=== PATIENT | female | born 1985 | race Caucasian/White ===

== ENCOUNTER 2017-09-13 12:59 | Emergency (ER) | payer SELFPAY ==
[~2017-09-13] VITALS: Ht 154.9 cm; Wt 56.7 kg
[2017-09-13 13:58] VITALS: BP 108/70
--- NOTE | 2017-09-13 14:03 | NUR ---
Patient ambulated to bed 11.
--- NOTE | 2017-09-13 14:04 | NUR ---
PT PRESENTS TO ER W/C/O SORE THROAT X1 MONTH. PT DENIES ANY MEDICAL HX.DENIES N/V/D; SKIN IS PINK/WARM/DRY; AAOX4 WITH EVEN AND STEADY GAIT; LUNGS CLEAR BL; HR EVEN AND REGULAR; PT DENIES ANY FEVER, CP, SOB, OR COUGH AT THIS TIME; PATIENT STATES PAIN OF 7/10 AT THIS TIME; PATIENT POSITIONED FOR COMFORT; HOB ELEVATED; BEDRAILS UP X2; BED DOWN. ER MD MADE AWARE OF PT STATUS.
--- NOTE | 2017-09-13 14:15 | NUR ---
Patient being evaluated by DR VELAZQUEZ at bedside.
[2017-09-13 14:48] VITALS: BP 106/62
--- NOTE | 2017-09-13 14:49 | NUR ---
Patient discharged with v/s stable. Written and verbal after care instructions given and explained. Patient alert, oriented and verbalized understanding of instructions. Ambulatory with steady gait. All questions addressed prior to discharge. ID band removed. Patient advised to follow up with PMD. Rx of CLINDAMYCIN,IBUPROFEN& PREDNISONE given. Patient educated on indication of medication including possible reaction and side effects. Opportunity to ask questions provided and answered.
== END 2017-09-13 14:49 | disposition home or self-care (01) ==
LOC: MED 12:59
DX: J02.9 Acute pharyngitis, unspecified (principal); M79.7 Fibromyalgia; Z88.8 Allergy status to other drugs, medicaments and biological substances; Z88.5 Allergy status to narcotic agent
CPT/HCPCS: 99283

== ENCOUNTER 2020-10-01 09:57 | Emergency (ER) | payer MEDICAID ==
[~2020-10-01] VITALS: Ht 157.5 cm; Wt 52.6 kg
[2020-10-01 10:30] VITALS: BP 105/59
[2020-10-01] MEDS: IBUPROFEN 400 MG TAB PO ONE (13:00)
--- NOTE | 2020-10-01 13:02 | NUR ---
35 yo female who complains of right flank and right upper quadrant abdominal pain slow onset for about 5 days. She also been constipated. Denies fever, cough, sob. med hx: gallbladder polyps
--- NOTE | 2020-10-01 13:05 | NUR ---
lab at chair a
--- NOTE | 2020-10-01 13:05 | NUR ---
pt unable to give ua at this time. pt given cup
[2020-10-01 13:20] LABS: BASOPHILS # (AUTO) 0.1 K/uL (0.00-0.22); BASOPHILS % (AUTO) 3.2 % (0.0-2.0); EOSINOPHILS % (AUTO) 0.8 % (0.0-4.0); HEMATOCRIT 32.9 % (36-48); HEMOGLOBIN 10.4 g/dL (12.0-16.0); LYMPHOCYTES # (AUTO) 0.9 K/uL (2.5-16.5); LYMPHOCYTES % (AUTO) 28.5 % (20.5-51.1); MEAN CORPUSCULAR HEMOGLOBIN 22 pg (27-31); MEAN CORPUSCULAR HGB CONC 32 g/dL (33-37); MEAN CORPUSCULAR VOLUME 69.4 fL (80-94); MONOCYTES # (AUTO) 0.3 K/uL (0.8-1.0); MONOCYTES % (AUTO) 10.3 % (1.7-9.3); NEUTROPHILS # (AUTO) 1.8 K/uL (1.8-7.7); NEUTROPHILS % (AUTO) 57.2 % (42.2-75.2); PLATELET COUNT (AUTO) 269 K/uL (140-450); RED BLOOD CELL COUNT(AUTO) 4.73 MIL/uL (4.20-5.40); RED CELL DISTRIBUTION WIDTH 18.5 % (11.6-13.7); WHITE BLOOD COUNT (AUTO) 3.2 K/uL (4.8-10.8)
[2020-10-01 13:44] LABS: ALBUMIN 4.2 g/dL (3.4-5.0); ANION GAP 14.6 (8-16); CARBON DIOXIDE 25.1 mmol/L (21-32); CREATININE 0.6 mg/dL (0.6-1.3); POTASSIUM 3.7 mmol/L (3.5-5.1); TOTAL BILIRUBIN 0.4 mg/dL (0.0-1.0)
[2020-10-01 14:03] LABS: APPEARANCE,URINE CLEAR (CLEAR); BILIRUBIN,URINE NEGATIVE (NEGATIVE); BLOOD, URINE NEGATIVE (NEGATIVE); COLOR,URINE YELLOW (YELLOW); LEUKOCYTE ESTERASE ,URINE NEGATIVE (NEGATIVE); NITRITE, URINE NEGATIVE (NEGATIVE); UGLUCOSE NEGATIVE (NEGATIVE)
--- NOTE | 2020-10-01 14:49 | NUR ---
Cj croft in EDM - 10/01/20 at 1628 by [email or web address] PATIENT ELOPED FROM FACILITY. DISCHARGE INSTRUCTIONS NOT GIVEN TO PATIENT. DR. FLORES NOTIFIED.
[2020-10-01 16:25] VITALS: BP 110/65
--- NOTE | 2020-10-01 16:25 | NUR ---
Patient discharged with v/s stable. Written and verbal after care instructions given and explained. Patient alert, oriented and verbalized understanding of instructions. Ambulatory with steady gait. All questions addressed prior to discharge. ID band removed. Patient advised to follow up with PMD. Rx of MIRALAX,NAPROSYN given. Patient educated on indication of medication including possible reaction and side effects. Opportunity to ask questions provided and answered.
== END 2020-10-01 16:25 | disposition home or self-care (01) ==
LOC: MED 09:57
DX: K59.00 Constipation, unspecified (principal); R63.0 Anorexia; Z98.890 Other specified postprocedural states; Z88.5 Allergy status to narcotic agent; Z88.6 Allergy status to analgesic agent; Z88.8 Allergy status to other drugs, medicaments and biological substances
CPT/HCPCS: 36415; 76705; 80053; 81003; 81025; 83690; 85025; 99284

== ENCOUNTER 2020-12-07 14:55 | Emergency (ER) | payer MEDICAID ==
[~2020-12-07] VITALS: Ht 154.9 cm; Wt 53.5 kg
[2020-12-07 15:08] VITALS: BP 96/70
[2020-12-07] MEDS ORDERED: HYDR25CA1 PO (16:16)
--- NOTE | 2020-12-07 16:20 | NUR ---
35 YEAR OLD FEMALE COMPLAINS OF CHEST PAIN X 1 WEEK. PAIN 7/10, INTERMITTENT, DULL, LOCAL. PATIENT DENIES VOMITING/DIARRHEA, VERBALIZED NAUSEA. PATIENT STATES SWEATING, DIZZINESS, GENERALIZED WEAKNESS. BP 109/71. PATIENT DENIES COUGH. AO4, BREATHING EVEN AND UNLABORED, SKIN WARM AND DRY. BED IN LOWEST POSITION, LOCKED, X1 SIDERAIL UP. PMH - FIBROMYALGIA NKA
[2020-12-07 16:28] VITALS: BP 109/71
--- NOTE | 2020-12-07 16:29 | NUR ---
Patient discharged with v/s stable. Written and verbal after care instructions ABOUT CHEST WALL PAIN given and explained IN FRISIAN. Patient alert, oriented and verbalized understanding of instructions. Ambulatory with steady gait. All questions addressed prior to discharge. ID band removed. Patient advised to follow up with PMD. Rx of VISTARIL given. Patient educated on indication of medication including possible reaction and side effects. Opportunity to ask questions provided and answered.
== END 2020-12-07 16:29 | disposition home or self-care (01) ==
LOC: MED 14:55
DX: R07.9 Chest pain, unspecified (principal); F41.9 Anxiety disorder, unspecified; Z88.5 Allergy status to narcotic agent; Z88.6 Allergy status to analgesic agent; Z79.899 Other long term (current) drug therapy
CPT/HCPCS: 81002; 81025; 93005; 99283

== ENCOUNTER 2021-04-12 10:05 | Emergency (ER) | payer MEDICAID ==
[~2021-04-12] VITALS: Ht 154.9 cm; Wt 57.2 kg
[~2021-04-12 10:05] MED LIST: DOXY100C9 PO; HYDR25CA1 PO; IBUP-2213 PO; MICO45CR20 VG; NAPR-54 PO; VALA1TAB42 PO
[2021-04-12 10:09] VITALS: BP 89/58
[2021-04-12] MEDS ORDERED: ONDANSETRON 4 MG/2 ML VIAL IVP ONE (12:20)
[2021-04-12] MEDS ORDERED: ONDANSETRON 4 MG/2 ML VIAL ONE (12:20)
[2021-04-12] MEDS ORDERED: KETOROLAC 15 MG/ML VIAL IVP ONE (12:20)
[2021-04-12] MEDS ORDERED: KETOROLAC 15 MG/ML VIAL ONE (12:20)
[2021-04-12 12:46] LABS: BASOPHILS # (AUTO) 0.2 K/uL (0.00-0.22); BASOPHILS % (AUTO) 4.5 % (0.0-2.0); EOSINOPHILS # (AUTO) 0.1 K/uL (0-0.4); EOSINOPHILS % (AUTO) 1.6 % (0.0-4.0); HEMATOCRIT 29.4 % (36-48); HEMOGLOBIN 9.2 g/dL (12.0-16.0); LYMPHOCYTES # (AUTO) 1.3 K/uL (2.5-16.5); LYMPHOCYTES % (AUTO) 37.4 % (20.5-51.1); MEAN CORPUSCULAR HEMOGLOBIN 21 pg (27-31); MEAN CORPUSCULAR HGB CONC 31 g/dL (33-37); MONOCYTES # (AUTO) 0.4 K/uL (0.8-1.0); MONOCYTES % (AUTO) 11.5 % (1.7-9.3); NEUTROPHILS # (AUTO) 1.6 K/uL (1.8-7.7); PLATELET COUNT (AUTO) 378 K/uL (140-450); RED BLOOD CELL COUNT(AUTO) 4.46 MIL/uL (4.20-5.40); RED CELL DISTRIBUTION WIDTH 17.8 % (11.6-13.7); WHITE BLOOD COUNT (AUTO) 3.5 K/uL (4.8-10.8)
[2021-04-12 13:06] LABS: ALBUMIN 4.4 g/dL (3.4-5.0); ANION GAP 10.3 (8-16); CARBON DIOXIDE 28.3 mmol/L (21-32); CREATININE 0.6 mg/dL (0.6-1.3); POTASSIUM 3.6 mmol/L (3.5-5.1); TOTAL BILIRUBIN 0.3 mg/dL (0.0-1.0)
[2021-04-12 13:28] LABS: APPEARANCE,URINE CLEAR (CLEAR); BILIRUBIN,URINE NEGATIVE (NEGATIVE); BLOOD, URINE TRACE-I (NEGATIVE); COLOR,URINE YELLOW (YELLOW); LEUKOCYTE ESTERASE ,URINE NEGATIVE (NEGATIVE); NITRITE, URINE NEGATIVE (NEGATIVE); UGLUCOSE NEGATIVE (NEGATIVE)
[2021-04-12] MEDS ORDERED: BEN10 PO (13:40)
[2021-04-12] MEDS ORDERED: ONDA4TAB PO (13:40)
[2021-04-12] MEDS ORDERED: FERR325E14 PO (13:40)
[2021-04-12] MEDS ORDERED: IBUP-2213 PO (13:40)
[2021-04-12] MEDS ORDERED: DOCU-299 PO (13:41)
[2021-04-12 13:46] LABS: RBC,URINE 0-5 /HPF (0-5); WBC,URINE 0-5 /HPF (0-5)
[2021-04-12 13:58] VITALS: BP 89/58
== END 2021-04-12 12:18 | disposition home or self-care (01) ==
LOC: MED 10:05 → MERGE 10:05 → MED 12:18
DX: R10.13 Epigastric pain (principal); Z88.5 Allergy status to narcotic agent; Z88.6 Allergy status to analgesic agent; Z88.8 Allergy status to other drugs, medicaments and biological substances; Z79.899 Other long term (current) drug therapy
CPT/HCPCS: 36415; 76705; 80053; 81001; 81025; 83690; 85025; 96374; 96375; 99284; J1885; J2405

== ENCOUNTER 2021-08-08 19:01 | Emergency (ER) | payer MEDICAID, OTHER ==
[~2021-08-08] VITALS: Ht 154.9 cm; Wt 53.2 kg
[~2021-08-08 19:01] MED LIST changes: +BEN10 PO; +DOCU-299 PO; +DOXY-690 PO; -DOXY100C9 PO; +FERR325E14 PO; +ONDA4TAB PO
[2021-08-08 21:03] VITALS: BP 108/59
--- NOTE | 2021-08-08 21:19 | NUR ---
PT MOVED TO ER BED 09 VIA WHEELCHAIR
[2021-08-08] MEDS ORDERED: traMADol 50 MG TAB PO ONE (21:40)
[2021-08-08] MEDS ORDERED: NACL 0.9% 1,000 ML IV SCH (21:40)
--- NOTE | 2021-08-08 21:50 | NUR ---
36 Y/O FEMALE C/O PAIN AT INCISION SITES. PT MAINLY C/O 07/21 RUQ PAIN RADIATING TO R BREAST/BACK S/P CHOLECTOMY ON THURSDAY. PAIN BEGAN 08/07. +N. DENIES VOMITING AND DIARRHEA. BURNING WITH URINATION, URGENCY AND FREQUENCY. PT REPORTS TAKING TRAMADOL FOR PAIN WITH RELIEF. NO SIGNS OF INFECTION AT INCISION SITE. DENIES DISCHARGE. PT REPORTS CHILLS. PT IS WEARING BINDER TO HELP WITH PAIN. PT A/O X4 WITH EVEN AND UNLABORED RESPIRATIONS HX:FIBROMYALGIA ALLERGIES: MORPHINE, VICODINE, AND TAMIFLU
[2021-08-08 21:59] LABS: BASOPHILS # (AUTO) 0.1 K/uL (0.00-0.22); EOSINOPHILS # (AUTO) 0.1 K/uL (0-0.4); EOSINOPHILS % (AUTO) 1.3 % (0.0-4.0); HEMATOCRIT 29.8 % (36-48); HEMOGLOBIN 9.4 g/dL (12.0-16.0); LYMPHOCYTES # (AUTO) 1.3 K/uL (2.5-16.5); LYMPHOCYTES % (AUTO) 18.6 % (20.5-51.1); MEAN CORPUSCULAR HEMOGLOBIN 22 pg (27-31); MEAN CORPUSCULAR HGB CONC 31 g/dL (33-37); MEAN CORPUSCULAR VOLUME 69.4 fL (80-94); MONOCYTES # (AUTO) 0.6 K/uL (0.8-1.0); MONOCYTES % (AUTO) 8.7 % (1.7-9.3); NEUTROPHILS # (AUTO) 4.9 K/uL (1.8-7.7); NEUTROPHILS % (AUTO) 70.4 % (42.2-75.2); PLATELET COUNT (AUTO) 260 K/uL (140-450); RED CELL DISTRIBUTION WIDTH 17.6 % (11.6-13.7)
[2021-08-08 22:14] LABS: ALBUMIN 3.7 g/dL (3.4-5.0); ANION GAP 10.6 (8-16); CARBON DIOXIDE 27.8 mmol/L (21-32); CREATININE 0.7 mg/dL (0.6-1.3); POTASSIUM 3.4 mmol/L (3.5-5.1); TOTAL BILIRUBIN 0.2 mg/dL (0.0-1.0)
--- NOTE | 2021-08-08 22:30 | NUR ---
PT UNABLE TO PROVIDE URINE SAMPLE AT THIS TIME, WILL ATTEMPT AT A LATER TIME
--- NOTE | 2021-08-08 22:54 | NUR ---
PT TAKEN TO CT VIA W/C
--- NOTE | 2021-08-08 23:10 | NUR ---
PT BACK FROM CT, PT IN BATHROOM FOR URINE SAMPLE
--- NOTE | 2021-08-08 23:11 | NUR ---
Received report from Lili GRIMM for continuity of care
--- NOTE | 2021-08-08 23:11 | NUR ---
REPORT GIVEN TO ROCIO RN, TRANSFER OF CARE AT THIS TIME
[2021-08-08 23:35] LABS: APPEARANCE,URINE CLEAR (CLEAR); BILIRUBIN,URINE NEGATIVE (NEGATIVE); BLOOD, URINE NEGATIVE (NEGATIVE); COLOR,URINE YELLOW (YELLOW); LEUKOCYTE ESTERASE ,URINE 1+ (NEGATIVE); NITRITE, URINE NEGATIVE (NEGATIVE); PH,URINE 5.5 (5.0-9.0); UGLUCOSE NEGATIVE (NEGATIVE)
[2021-08-08 23:48] LABS: RBC,URINE 0-5 /HPF (0-5)
[2021-08-09] MEDS ORDERED: TRAM50TA3 PO (00:12)
[2021-08-09] MEDS ORDERED: CEPH-588 PO (00:12)
[2021-08-09] MEDS ORDERED: cefTRIAXone 1,000 MG VIAL ONE (00:31)
[2021-08-09 01:42] VITALS: BP 115/70
--- NOTE | 2021-08-09 01:42 | NUR ---
Patient discharged with v/s stable. Written and verbal after care instructions given and explained. Patient alert, oriented and verbalized understanding of instructions. Ambulatory with steady gait. All questions addressed prior to discharge. ID band removed. Patient advised to follow up with PMD. Rx of KEFLEX AND TRAMADOL given. Patient educated on indication of medication including possible reaction and side effects. Opportunity to ask questions provided and answered.
== END 2021-08-09 01:42 | disposition home or self-care (01) ==
LOC: MED 19:01
DX: R10.13 Epigastric pain (principal); G89.18 Other acute postprocedural pain; N39.0 Urinary tract infection, site not specified; Z88.6 Allergy status to analgesic agent; Z88.5 Allergy status to narcotic agent; Z88.8 Allergy status to other drugs, medicaments and biological substances
CPT/HCPCS: 36415; 74176; 80053; 81001; 83690; 84703; 85025; 87086; 96361; 96365; 99284; J0696; J7030

== ENCOUNTER 2021-10-14 11:56 | Emergency (ER) | payer OTHER ==
[~2021-10-14] VITALS: Ht 154.9 cm; Wt 53.1 kg
[~2021-10-14 11:56] MED LIST changes: +CEPH-588 PO; +TRAM50TA3 PO
[2021-10-14 12:13] VITALS: BP 107/63
[2021-10-14] MEDS ORDERED: IMO2 PO (15:26)
[2021-10-14] MEDS ORDERED: ONDA-188 PO (15:28)
[2021-10-14 15:38] LABS: BASOPHILS # (AUTO) 0.1 K/uL (0.00-0.22); BASOPHILS % (AUTO) 1.3 % (0.0-2.0); EOSINOPHILS # (AUTO) 0.1 K/uL (0-0.4); EOSINOPHILS % (AUTO) 1.1 % (0.0-4.0); HEMATOCRIT 30.3 % (36-48); HEMOGLOBIN 9.7 g/dL (12.0-16.0); LYMPHOCYTES # (AUTO) 1.4 K/uL (2.5-16.5); LYMPHOCYTES % (AUTO) 26.7 % (20.5-51.1); MEAN CORPUSCULAR HEMOGLOBIN 22 pg (27-31); MEAN CORPUSCULAR HGB CONC 32 g/dL (33-37); MEAN CORPUSCULAR VOLUME 68.7 fL (80-94); MONOCYTES # (AUTO) 0.4 K/uL (0.8-1.0); MONOCYTES % (AUTO) 8.1 % (1.7-9.3); NEUTROPHILS # (AUTO) 3.3 K/uL (1.8-7.7); NEUTROPHILS % (AUTO) 62.8 % (42.2-75.2); PLATELET COUNT (AUTO) 316 K/uL (140-450); RED BLOOD CELL COUNT(AUTO) 4.41 MIL/uL (4.20-5.40); WHITE BLOOD COUNT (AUTO) 5.2 K/uL (4.8-10.8)
[2021-10-14 15:59] LABS: ALBUMIN 3.8 g/dL (3.4-5.0); ANION GAP 9.4 (8-16); CARBON DIOXIDE 28.2 mmol/L (21-32); CREATININE 0.5 mg/dL (0.6-1.3); POTASSIUM 3.6 mmol/L (3.5-5.1); TOTAL BILIRUBIN 0.2 mg/dL (0.0-1.0)
--- NOTE | 2021-10-14 16:15 | NUR ---
Patient discharged with v/s stable. Written and verbal after care instructions given and explained. Patient verbalized understanding. Ambulatory with steady gait. All questions addressed prior to discharge. Advised to follow up with PMD.
[2021-10-14 16:16] VITALS: BP 107/63
--- NOTE | 2021-10-14 16:16 | NUR ---
rx: loperamide hydrochloride (sent)
== END 2021-10-14 16:15 | disposition home or self-care (01) ==
LOC: MED 11:56
DX: R19.7 Diarrhea, unspecified (principal); R10.9 Unspecified abdominal pain; D64.9 Anemia, unspecified; Z90.49 Acquired absence of other specified parts of digestive tract; Z79.899 Other long term (current) drug therapy; Z88.5 Allergy status to narcotic agent; Z88.8 Allergy status to other drugs, medicaments and biological substances; Z88.6 Allergy status to analgesic agent
CPT/HCPCS: 36415; 80053; 83690; 84703; 85025; 99283

== ENCOUNTER 2021-10-27 12:57 | Emergency (ER) | payer OTHER ==
[~2021-10-27] VITALS: Ht 154.9 cm; Wt 54.4 kg
[~2021-10-27 12:57] MED LIST changes: +IMO2 PO; +ONDA-188 PO
[2021-10-27 13:18] VITALS: BP 118/73
--- NOTE | 2021-10-27 13:20 | NUR ---
PA WILSON EVALUATING PT AT THIS TIME IN THE TENT
[2021-10-27] MEDS ORDERED: ONDANSETRON 4 MG ODT ONE (13:28)
[2021-10-27] MEDS: ONDANSETRON 4 MG ODT PO ONE ×2 (14:07→14:10)
[2021-10-27] MEDS ORDERED: IMO2 PO ×2 (14:21→15:11)
[2021-10-27] MEDS ORDERED: IBUP-2213 PO (14:21)
[2021-10-27] MEDS ORDERED: ONDA-188 PO ×2 (14:21→15:11)
[2021-10-27] MEDS ORDERED: NAPR-54 PO ×2 (14:45→15:11)
--- NOTE | 2021-10-27 15:02 | NUR ---
Patient discharged with v/s stable. Written and verbal after care instructions ABOUT VIRAL ILLNESS given and explained. Patient alert, oriented and verbalized understanding of instructions. Ambulatory with steady gait. All questions addressed prior to discharge. ID band removed. Patient advised to follow up with PMD. Rx of MOTRIN, NAPROXEN, ZOFRAN, AND LOPERAMIDE given. Patient educated on indication of medication including possible reaction and side effects. Opportunity to ask questions provided and answered.
== END 2021-10-27 18:02 | disposition home or self-care (01) ==
LOC: MED 12:57
DX: B34.9 Viral infection, unspecified (principal); Z20.822 Contact with and (suspected) exposure to COVID-19; Z79.899 Other long term (current) drug therapy; Z88.5 Allergy status to narcotic agent; Z88.6 Allergy status to analgesic agent; Z88.8 Allergy status to other drugs, medicaments and biological substances
CPT/HCPCS: 71045; 81002; 81025; 99284; Q0162; U0003

== ENCOUNTER 2021-10-30 11:20 | Emergency (ER) | payer OTHER ==
[~2021-10-30] VITALS: Ht 162.6 cm; Wt 53.1 kg
[2021-10-30 11:33] VITALS: BP 103/59
[2021-10-30] MEDS ORDERED: BEN10 PO (14:07)
--- NOTE | 2021-10-30 14:30 | NUR ---
Patient discharged with v/s stable. Written and verbal after care instructions ABOUT IBS given and explained. Patient alert, oriented and verbalized understanding of instructions. Ambulatory with steady gait. All questions addressed prior to discharge. ID band removed. Patient advised to follow up with PMD. Rx of BENTYL given. Patient educated on indication of medication including possible reaction and side effects. Opportunity to ask questions provided and answered.
--- NOTE | 2021-10-30 14:30 | NUR ---
NO NURSING INTERVENTIONS PROVIDED
[2021-10-30 19:19] LABS: APPEARANCE,URINE CLEAR (CLEAR); BILIRUBIN,URINE NEGATIVE (NEGATIVE); BLOOD, URINE 2+ (NEGATIVE); COLOR,URINE YELLOW (YELLOW); LEUKOCYTE ESTERASE ,URINE NEGATIVE (NEGATIVE); NITRITE, URINE NEGATIVE (NEGATIVE); UGLUCOSE NEGATIVE (NEGATIVE)
[2021-10-30 19:33] LABS: RBC,URINE 0-5 /HPF (0-5); WBC,URINE 0-5 /HPF (0-5)
== END 2021-10-30 14:30 | disposition home or self-care (01) ==
LOC: MED 11:21
DX: R19.7 Diarrhea, unspecified (principal); K59.00 Constipation, unspecified; Z79.899 Other long term (current) drug therapy; Z88.5 Allergy status to narcotic agent; Z88.8 Allergy status to other drugs, medicaments and biological substances; Z88.6 Allergy status to analgesic agent; Z98.890 Other specified postprocedural states; Z90.49 Acquired absence of other specified parts of digestive tract
CPT/HCPCS: 81001; 81025; 99283

== ENCOUNTER 2021-11-15 12:28 | Emergency (ER) | payer OTHER ==
[~2021-11-15] VITALS: Ht 154.9 cm; Wt 53.1 kg
[2021-11-15 12:43] VITALS: BP 111/73
--- NOTE | 2021-11-15 12:47 | NUR ---
pt amb to er bed [address] cortes at bedside
--- NOTE | 2021-11-15 12:49 | NUR ---
36/F BIB SELF WITH C/O JOINT PAIN AND CHEST PAIN X3 DAYS, STATES SHE HAS HX OF FIBROMYALGIA AND BELIEVES SHE IS HAVING A FLARE UP, STATES SHE TOOK ASPIRIN WITH NO RELIEF. MEDHX: FIBROMYLAGIA ALLERGIES: MORPHINE, TAMIFLU, HYDROCODONE
[2021-11-15 12:54] VITALS: BP 111/73
[2021-11-15] MEDS ORDERED: KETOROLAC 30 MG/ML VIAL IM ONE (13:00)
[2021-11-15] MEDS ORDERED: NAPR-1704 PO (13:34)
== END 2021-11-15 14:26 | disposition home or self-care (01) ==
LOC: MED 12:28
DX: G89.29 Other chronic pain (principal); M25.561 Pain in right knee; M25.562 Pain in left knee; R42 Dizziness and giddiness; M54.9 Dorsalgia, unspecified; R06.2 Wheezing; R07.9 Chest pain, unspecified; Z88.8 Allergy status to other drugs, medicaments and biological substances; Z88.5 Allergy status to narcotic agent; Z88.6 Allergy status to analgesic agent
CPT/HCPCS: 71045; 96372; 99283; J1885; Q0092

== ENCOUNTER 2021-12-27 16:21 | Emergency (ER) | payer OTHER ==
[~2021-12-27] VITALS: Ht 154.9 cm; Wt 54.4 kg
[~2021-12-27 16:21] MED LIST changes: +NAPR-1704 PO
[2021-12-27 16:35] VITALS: BP 116/59
--- NOTE | 2021-12-27 16:55 | NUR ---
URINE COLLECTED AND WALKED TO LAB. URINE HANDED TO [employer] ASHLEY
--- NOTE | 2021-12-27 17:06 | NUR ---
36 YO F C/O FLANK PAIN AND DYSURIA X 2 WEEKS. (+)N/V. DENIES HEMATURIA. TOOK IBUPROFEN LAST NIGHT. LMP- 12/19/21. PER PATIENT THE LOWER BACK PAIN IS DULL LIKE PAIN AND 8/10. DENIES DIARRHEA; SKIN IS PINK/WARM/DRY; AAOX4 WITH EVEN AND STEADY GAIT; LUNGS CLEAR BL; HR EVEN AND REGULAR; PT DENIES ANY FEVER, CP, SOB, OR COUGH AT THIS TIME; PATIENT STATES PAIN OF 0/10 AT THIS TIME; VSS; PATIENT POSITIONED FOR COMFORT; HOB ELEVATED; BEDRAILS UP X2; BED DOWN. ER MD MADE AWARE OF PT STATUS. PMH: FIBROMYALGIA MEDS: GABAPENTIN
[2021-12-27 17:07] LABS: APPEARANCE,URINE CLEAR (CLEAR); BILIRUBIN,URINE NEGATIVE (NEGATIVE); BLOOD, URINE TRACE-L (NEGATIVE); COLOR,URINE YELLOW (YELLOW); LEUKOCYTE ESTERASE ,URINE NEGATIVE (NEGATIVE); NITRITE, URINE NEGATIVE (NEGATIVE); UGLUCOSE NEGATIVE (NEGATIVE)
--- NOTE | 2021-12-27 17:34 | NUR ---
BLOODWORK COLLECTED AND HANDED TO [employer]ENT[employer] ASHLEY SIDRA
[2021-12-27 17:51] LABS: BASOPHILS # (AUTO) 0.1 K/uL (0.00-0.22); BASOPHILS % (AUTO) 2.7 % (0.0-2.0); EOSINOPHILS # (AUTO) 0.1 K/uL (0-0.4); HEMATOCRIT 27.1 % (36-48); HEMOGLOBIN 8.6 g/dL (12.0-16.0); LYMPHOCYTES # (AUTO) 1.8 K/uL (2.5-16.5); LYMPHOCYTES % (AUTO) 35.9 % (20.5-51.1); MEAN CORPUSCULAR HEMOGLOBIN 22 pg (27-31); MEAN CORPUSCULAR HGB CONC 32 g/dL (33-37); MEAN CORPUSCULAR VOLUME 69.1 fL (80-94); MONOCYTES # (AUTO) 0.6 K/uL (0.8-1.0); MONOCYTES % (AUTO) 12.4 % (1.7-9.3); NEUTROPHILS # (AUTO) 2.2 K/uL (1.8-7.7); PLATELET COUNT (AUTO) 326 K/uL (140-450); RED BLOOD CELL COUNT(AUTO) 3.93 MIL/uL (4.20-5.40); RED CELL DISTRIBUTION WIDTH 17.8 % (11.6-13.7); WHITE BLOOD COUNT (AUTO) 4.9 K/uL (4.8-10.8)
[2021-12-27 18:05] LABS: RBC,URINE 0-5 /HPF (0-5); WBC,URINE NONE SEEN /HPF (0-5)
[2021-12-27 18:09] LABS: ALBUMIN 3.3 g/dL (3.4-5.0); ANION GAP 10.3 (8-16); CARBON DIOXIDE 29.3 mmol/L (21-32); CREATININE 0.7 mg/dL (0.6-1.3); POTASSIUM 3.6 mmol/L (3.5-5.1); TOTAL BILIRUBIN 0.4 mg/dL (0.0-1.0)
--- NOTE | 2021-12-27 18:16 | NUR ---
PT RETURNED TO BED [address] [facility] [facility]
[2021-12-27] MEDS: ONDANSETRON 4 MG/2 ML VIAL IVP ONE ×2 (18:25→19:05)
[2021-12-27] MEDS: KETOROLAC 15 MG/ML VIAL IVP ONE ×2 (18:25→19:04)
[2021-12-27] MEDS: NACL 0.9% 1,000 ML IV ONE ×2 (18:25→19:04)
[2021-12-27] MEDS ORDERED: ONDA-188 PO ×2 (18:53→20:10)
[2021-12-27] MEDS ORDERED: CEPH-588 PO ×2 (18:53→20:10)
[2021-12-27] MEDS ORDERED: PYR100 PO ×2 (18:53→20:10)
[2021-12-27] MEDS: cephALEXin 500 MG CAP PO ONE (19:13)
--- NOTE | 2021-12-27 19:19 | NUR ---
Pt report given to SIRISHA RASMUSSEN. Transfer of care at this time.
[2021-12-27 20:19] VITALS: BP 97/63
--- NOTE | 2021-12-27 20:37 | NUR ---
Patient discharged with v/s stable. Written and verbal after care instructions given and explained. Patient alert, oriented and verbalized understanding of instructions. Ambulatory with steady gait. All questions addressed prior to discharge. ID band removed. Patient advised to follow up with PMD. Rx of KEFLEX, ZOFRAN, PYRIDIUM given. Patient educated on indication of medication including possible reaction and side effects. Opportunity to ask questions provided and answered.
== END 2021-12-27 20:19 | disposition home or self-care (01) ==
LOC: MED 16:21
DX: N39.0 Urinary tract infection, site not specified (principal); D64.9 Anemia, unspecified; J84.10 Pulmonary fibrosis, unspecified; N85.2 Hypertrophy of uterus; Z20.2 Contact with and (suspected) exposure to infections with a predominantly sexual mode of transmission; Z88.5 Allergy status to narcotic agent; Z88.6 Allergy status to analgesic agent; Z88.8 Allergy status to other drugs, medicaments and biological substances; Z79.899 Other long term (current) drug therapy
CPT/HCPCS: 36415; 74176; 80053; 81001; 81025; 83690; 85025; 87086; 96361; 96374; 96375; 99284; J1885; J2405; J7030

== ENCOUNTER 2021-12-31 18:12 | Emergency (ER) | payer OTHER ==
[~2021-12-31] VITALS: Ht 154.9 cm; Wt 55.8 kg
[~2021-12-31 18:12] MED LIST changes: +PYR100 PO
[2021-12-31 18:36] VITALS: BP 102/65
[2021-12-31 20:18] LABS: BASOPHILS # (AUTO) 0.1 K/uL (0.00-0.22); BASOPHILS % (AUTO) 2.3 % (0.0-2.0); EOSINOPHILS # (AUTO) 0.1 K/uL (0-0.4); EOSINOPHILS % (AUTO) 1.5 % (0.0-4.0); HEMATOCRIT 27.6 % (36-48); HEMOGLOBIN 8.9 g/dL (12.0-16.0); LYMPHOCYTES # (AUTO) 1.6 K/uL (2.5-16.5); LYMPHOCYTES % (AUTO) 25.6 % (20.5-51.1); MEAN CORPUSCULAR HEMOGLOBIN 22 pg (27-31); MEAN CORPUSCULAR HGB CONC 32 g/dL (33-37); MONOCYTES # (AUTO) 0.7 K/uL (0.8-1.0); MONOCYTES % (AUTO) 10.5 % (1.7-9.3); NEUTROPHILS # (AUTO) 3.8 K/uL (1.8-7.7); NEUTROPHILS % (AUTO) 60.1 % (42.2-75.2); PLATELET COUNT (AUTO) 348 K/uL (140-450); RED CELL DISTRIBUTION WIDTH 17.6 % (11.6-13.7); WHITE BLOOD COUNT (AUTO) 6.3 K/uL (4.8-10.8)
[2021-12-31 20:40] LABS: ALBUMIN 3.5 g/dL (3.4-5.0); ANION GAP 12.2 (8-16); CARBON DIOXIDE 28.6 mmol/L (21-32); CREATININE 0.6 mg/dL (0.6-1.3); POTASSIUM 3.8 mmol/L (3.5-5.1); TOTAL BILIRUBIN 0.7 mg/dL (0.0-1.0)
[2021-12-31] MEDS ORDERED: METR-435 PO (22:11)
--- NOTE | 2021-12-31 22:25 | NUR ---
Patient discharged with v/s stable. Written and verbal after care instructions given and explained. Patient alert, oriented and verbalized understanding of instructions. Ambulatory with steady gait. All questions addressed prior to discharge. ID band removed. Patient advised to follow up with PMD. Rx of Metronidazole given. Patient educated on indication of medication including possible reaction and side effects. Opportunity to ask questions provided and answered.
[2021-12-31 22:32] VITALS: BP 105/67
== END 2021-12-31 22:25 | disposition home or self-care (01) ==
LOC: MED 18:12
DX: N77.1 Vaginitis, vulvitis and vulvovaginitis in diseases classified elsewhere (principal); Z88.6 Allergy status to analgesic agent; Z88.5 Allergy status to narcotic agent; Z88.8 Allergy status to other drugs, medicaments and biological substances; Z79.899 Other long term (current) drug therapy
CPT/HCPCS: 36415; 71045; 80053; 81025; 83880; 84484; 85025; 87210; 93005; 99285

== ENCOUNTER 2022-01-17 14:00 | Emergency (ER) | payer OTHER ==
[~2022-01-17] VITALS: Ht 154.9 cm; Wt 53.1 kg
[~2022-01-17 14:00] MED LIST changes: +METR-435 PO
--- NOTE | 2022-01-17 14:05 | NUR ---
pt ambulated to bed 05.
[2022-01-17 14:16] VITALS: BP 103/70
--- NOTE | 2022-01-17 14:45 | NUR ---
AT PT BEDSIDE.
--- NOTE | 2022-01-17 14:48 | NUR ---
36 Y/O FEMALE BIB SELF C/O INTERMITTENT ABDOMINAL "DULL" TYPE OF PAIN AND BLOOD IN STOOL FOR APPROX. 1WK. ABDOMEN IS TENDER. PT DENIES NAUSEA, VOMITING, DIARRHEA. PT DENIES FEVER OR CHILLS, CHEST PAIN OR SOB. S/P GALL BLADDER REMOVAL APPROX. 6 MOS AGO. PT IS ALERT AND ORIENTED X4. BED IN LOWET POSITION. SIDE RAIL X1. PMH:FIBROMYALGIA, ANEMIA MEDS: GABAPENTIN, NAPROXEN ALLERGIES: VICODIN, MORPHINE, TIMAFLU
[2022-01-17] MEDS ORDERED: KETOROLAC 30 MG/ML VIAL IVP ONE (15:15)
[2022-01-17 15:38] LABS: BASOPHILS # (AUTO) 0.1 K/uL (0.00-0.22); BASOPHILS % (AUTO) 3.2 % (0.0-2.0); EOSINOPHILS # (AUTO) 0.1 K/uL (0-0.4); EOSINOPHILS % (AUTO) 1.8 % (0.0-4.0); HEMATOCRIT 28.8 % (36-48); HEMOGLOBIN 9.2 g/dL (12.0-16.0); LYMPHOCYTES # (AUTO) 1.2 K/uL (2.5-16.5); MEAN CORPUSCULAR HEMOGLOBIN 22 pg (27-31); MEAN CORPUSCULAR HGB CONC 32 g/dL (33-37); MEAN CORPUSCULAR VOLUME 68.7 fL (80-94); MONOCYTES # (AUTO) 0.5 K/uL (0.8-1.0); MONOCYTES % (AUTO) 12.7 % (1.7-9.3); NEUTROPHILS # (AUTO) 2.3 K/uL (1.8-7.7); NEUTROPHILS % (AUTO) 54.3 % (42.2-75.2); PLATELET COUNT (AUTO) 314 K/uL (140-450); RED BLOOD CELL COUNT(AUTO) 4.19 MIL/uL (4.20-5.40); RED CELL DISTRIBUTION WIDTH 18.6 % (11.6-13.7); WHITE BLOOD COUNT (AUTO) 4.2 K/uL (4.8-10.8)
[2022-01-17 15:53] LABS: APPEARANCE,URINE CLEAR (CLEAR); BILIRUBIN,URINE NEGATIVE (NEGATIVE); BLOOD, URINE 3+ (NEGATIVE); COLOR,URINE STRAW (YELLOW); LEUKOCYTE ESTERASE ,URINE NEGATIVE (NEGATIVE); NITRITE, URINE NEGATIVE (NEGATIVE); PH,URINE 6.5 (5.0-9.0); UGLUCOSE NEGATIVE (NEGATIVE)
[2022-01-17 15:54] LABS: ALBUMIN 3.6 g/dL (3.4-5.0); CARBON DIOXIDE 28.7 mmol/L (21-32); CREATININE 0.8 mg/dL (0.6-1.3); POTASSIUM 3.7 mmol/L (3.5-5.1); TOTAL BILIRUBIN 0.4 mg/dL (0.0-1.0)
[2022-01-17 16:08] LABS: RBC,URINE 50-80 /HPF (0-5); WBC,URINE NONE SEEN /HPF (0-5)
[2022-01-17 17:06] VITALS: BP 103/70
== END 2022-01-17 17:07 | disposition home or self-care (01) ==
LOC: MED 14:00
DX: R10.11 Right upper quadrant pain (principal); R19.7 Diarrhea, unspecified; R11.0 Nausea
CPT/HCPCS: 36415; 80053; 81001; 81025; 83690; 85025; 96372; 99283; J1885; 96374

== ENCOUNTER 2022-04-13 06:33 | Emergency (ER) | payer OTHER ==
[~2022-04-13] VITALS: Ht 154.9 cm; Wt 55.8 kg
[2022-04-13 06:38] VITALS: BP 94/63
--- NOTE | 2022-04-13 06:42 | NUR ---
Cj croft in [facility] - 04/13/22 at 0644 by [facility] PT TAKEN TO .
--- NOTE | 2022-04-13 06:44 | NUR ---
CONSTANCE KWAW ASSESSING IN TRIAGE.
--- NOTE | 2022-04-13 06:44 | NUR ---
TAKEN TO BED 09
[2022-04-13] MEDS ORDERED: KETOROLAC 30 MG/ML VIAL ONE (06:49)
[2022-04-13] MEDS ORDERED: KETOROLAC 30 MG/ML VIAL IVP ONE (06:50)
[2022-04-13] MEDS ORDERED: NACL 0.9% 1,000 ML IV ONE (06:50)
--- NOTE | 2022-04-13 07:04 | NUR ---
AFGHAN-SPEAKING PATIENT
--- NOTE | 2022-04-13 07:10 | NUR ---
RECEIVED REPORT FROM SIRISHA TRUJILLO. ASSUMED CARE AT THIS TIME.
[2022-04-13 07:30] LABS: BASOPHILS % (AUTO) 0.5 % (0.0-2.0); EOSINOPHILS % (AUTO) 0.3 % (0.0-4.0); HEMATOCRIT 32.2 % (36-48); HEMOGLOBIN 10.2 g/dL (12.0-16.0); LYMPHOCYTES # (AUTO) 0.6 K/uL (2.5-16.5); MEAN CORPUSCULAR HEMOGLOBIN 22 pg (27-31); MEAN CORPUSCULAR HGB CONC 32 g/dL (33-37); MEAN CORPUSCULAR VOLUME 69.8 fL (80-94); MONOCYTES # (AUTO) 0.6 K/uL (0.8-1.0); MONOCYTES % (AUTO) 6.5 % (1.7-9.3); NEUTROPHILS # (AUTO) 8.3 K/uL (1.8-7.7); PLATELET COUNT (AUTO) 293 K/uL (140-450); RED BLOOD CELL COUNT(AUTO) 4.62 MIL/uL (4.20-5.40); WHITE BLOOD COUNT (AUTO) 9.6 K/uL (4.8-10.8)
[2022-04-13 07:47] LABS: LYMPHOCYTES % (AUTO) 6.4 % (20.5-51.1); NEUTROPHILS % (AUTO) 86.3 % (42.2-75.2)
[2022-04-13 08:14] LABS: ALBUMIN 3.7 g/dL (3.4-5.0); CARBON DIOXIDE 30.3 mmol/L (21-32); CREATININE 0.6 mg/dL (0.6-1.3); POTASSIUM 3.3 mmol/L (3.5-5.1); TOTAL BILIRUBIN 0.3 mg/dL (0.0-1.0)
--- NOTE | 2022-04-13 09:19 | NUR ---
IV removed, catheter intact and site benign. Applied folded 4x4 gauze and tape to stop bleeding.
[2022-04-13 09:20] VITALS: BP 108/66
--- NOTE | 2022-04-13 09:20 | NUR ---
Patient discharged with v/s stable. Written and verbal after care instructions ABOOUT FOOD POISONING given and explained. Patient verbalized understanding. Ambulatory with steady gait. All questions addressed prior to discharge. Advised to follow up with PMD.
[2022-04-13] MEDS ORDERED: LOPE-202 PO ×2 (18:40→19:02)
[2022-04-13] MEDS ORDERED: BEN10 PO (18:40)
[2022-04-13] MEDS ORDERED: ONDA-188 PO ×2 (18:40→19:02)
[2022-04-13] MEDS ORDERED: IBUP-2213 PO ×2 (18:40→19:02)
== END 2022-04-13 09:20 | disposition home or self-care (01) ==
LOC: MED 06:33
DX: A05.9 Bacterial foodborne intoxication, unspecified (principal); R19.7 Diarrhea, unspecified; Z90.49 Acquired absence of other specified parts of digestive tract; Z98.890 Other specified postprocedural states; Z79.2 Long term (current) use of antibiotics; Z79.899 Other long term (current) drug therapy; Z79.1 Long term (current) use of non-steroidal anti-inflammatories (NSAID); Z79.891 Long term (current) use of opiate analgesic; Z88.8 Allergy status to other drugs, medicaments and biological substances; Z88.5 Allergy status to narcotic agent
CPT/HCPCS: 36415; 80053; 81002; 81025; 85025; 96361; 96374; 99283; J1885

== ENCOUNTER 2022-04-13 14:18 | Emergency (ER) | payer OTHER ==
[~2022-04-13] VITALS: Ht 154.9 cm; Wt 54.9 kg
[2022-04-13 14:37] VITALS: BP 109/64
[2022-04-13] MEDS ORDERED: IBUPROFEN 400 MG TAB ONE (15:40)
[2022-04-13] MEDS ORDERED: IBUPROFEN 400 MG TAB PO ONE (15:40)
--- NOTE | 2022-04-13 16:52 | NUR ---
CONTACTED PT NOT FOUND IN LOBBY
--- NOTE | 2022-04-13 17:00 | NUR ---
SWABS WALKED TO LAB, RECHECKED TEMP 98.5 ORAL
--- NOTE | 2022-04-13 17:15 | NUR ---
Cj croft in [facility] - 04/13/22 at 1824 by DAMIENMD PT LEFT WITHOUT DISCHARGE INSTRUCTIONS
--- NOTE | 2022-04-13 18:24 | NUR ---
PT RETURN BACK TO [facility]
--- NOTE | 2022-04-13 18:36 | NUR ---
DR LYNNE IN TRIAGE FOR PT EVAL, YARN SPINNER USED, PAULA
[2022-04-13] MEDS ORDERED: BEN10 PO (18:40)
[2022-04-13] MEDS ORDERED: IBUP-2213 PO ×2 (18:40→19:02)
[2022-04-13] MEDS ORDERED: ONDA-188 PO ×2 (18:40→19:02)
[2022-04-13] MEDS ORDERED: LOPE-202 PO ×2 (18:40→19:02)
[2022-04-13] MEDS ORDERED: ACETAMINOPHEN EXTRA STRENGTH 500 MG TAB PO ONE (18:45)
[2022-04-13 19:02] VITALS: BP 120/74
--- NOTE | 2022-04-13 19:02 | NUR ---
Patient discharged with v/s stable. Written and verbal after care instructions given and explained. Patient alert, oriented and verbalized understanding of instructions. Ambulatory with steady gait. All questions addressed prior to discharge. ID band removed. Patient advised to follow up with PMD. Rx of IBUPROFEN, BENTYL, LOPERAMIDE, ZOFRAN ODT given. Patient educated on indication of medication including possible reaction and side effects. Opportunity to ask questions provided and answered.
== END 2022-04-13 19:02 | disposition home or self-care (01) ==
LOC: MED 14:18
DX: A05.9 Bacterial foodborne intoxication, unspecified (principal); Z20.822 Contact with and (suspected) exposure to COVID-19; A08.4 Viral intestinal infection, unspecified; R50.9 Fever, unspecified; Z79.899 Other long term (current) drug therapy; Z79.1 Long term (current) use of non-steroidal anti-inflammatories (NSAID); Z79.2 Long term (current) use of antibiotics; Z88.5 Allergy status to narcotic agent; Z88.6 Allergy status to analgesic agent; Z88.8 Allergy status to other drugs, medicaments and biological substances
CPT/HCPCS: 99283

== ENCOUNTER 2022-04-17 10:00 | Emergency (ER) | payer OTHER ==
[~2022-04-17] VITALS: Ht 154.9 cm; Wt 54.0 kg
[~2022-04-17 10:00] MED LIST changes: +LOPE-202 PO
[2022-04-17 10:10] VITALS: BP 112/65
[2022-04-17 13:43] LABS: APPEARANCE,URINE CLEAR (CLEAR); BILIRUBIN,URINE NEGATIVE (NEGATIVE); BLOOD, URINE NEGATIVE (NEGATIVE); COLOR,URINE YELLOW (YELLOW); LEUKOCYTE ESTERASE ,URINE NEGATIVE (NEGATIVE); NITRITE, URINE NEGATIVE (NEGATIVE); UGLUCOSE NEGATIVE (NEGATIVE)
[2022-04-17] MEDS ORDERED: ONDANSETRON 4 MG ODT ONE (13:51)
[2022-04-17] MEDS: ONDANSETRON 4 MG ODT PO ONE (13:55)
--- NOTE | 2022-04-17 15:13 | NUR ---
PATIENT IS DISCHARGED. PATIENT IS REFUSING TO SIGN TO DC PAPERWORK.
--- NOTE | 2022-04-17 15:15 | NUR ---
DR OLIVEIRA, WHO SAW THE PATIENT LEFT. DR ADHIKARI MADE AWARE OF PATIENTS REQUEST. STATED TO FOLLOW UP WITH PCP, PT HAS BEEN DISCHARGED BY PREVIOUS MD.
--- NOTE | 2022-04-17 15:20 | NUR ---
PT REFUSING TO LEAVE. SECURITY CALLED AND ASSISTED. PT SCREAMING IN MY FACE. OTHER PATIENTS GETTING INVOLVED, GETTING AGGRESSIVE AND APPROACHING ME. BROOK BORJA CALLED FOR ASSISTANCE.
--- NOTE | 2022-04-17 16:15 | NUR ---
HOUSE BOGDAN ANDRADE NOTIFIED AND INVOLVED. PT IN FRONT LOBBY. BROOK BORJA HERE, SENT TO FRONT LOBBY
== END 2022-04-17 15:13 | disposition home or self-care (01) ==
LOC: MED 10:00
DX: K52.9 Noninfective gastroenteritis and colitis, unspecified (principal)
CPT/HCPCS: 81003; 81025; 99283; Q0162

== ENCOUNTER 2022-05-21 09:58 | Emergency (ER) | payer OTHER ==
[~2022-05-21] VITALS: Ht 153.7 cm; Wt 55.4 kg
[2022-05-21 10:09] VITALS: BP 111/78
[2022-05-21] MEDS ORDERED: NACL 0.9% 1,000 ML IV ONE (11:35)
[2022-05-21] MEDS ORDERED: DEXAMETHASONE 10 MG/ML VIAL IVP ONE (11:35)
[2022-05-21] MEDS ORDERED: EPINEPHrine 1 MG/ML AMP IM ONE (11:35)
[2022-05-21] MEDS ORDERED: FAMOTIDINE 20 MG/2 ML VIAL IVP ONE (11:35)
[2022-05-21] MEDS ORDERED: diphenhydrAMINE 50 MG/ML VIAL IVP ONE (11:35)
[2022-05-21] MEDS ORDERED: KETOROLAC 30 MG/ML VIAL IVP ONE (11:40)
[2022-05-21] MEDS ORDERED: METOCLOPRAMIDE 10 MG/2 ML INJ VIAL IVP ONE (11:40)
--- NOTE | 2022-05-21 12:05 | NUR ---
36/F PRESENTS TO ED WITH C/O HEADACHE, DIZZINESS AND BILATERAL EAR PAIN SINCE THIS MORNING. PATIENT REPORTS HAVING SIMILAR SYMPTOMS IN THE PAST AND BEING SEEN BEFORE, STATES SHE HAS NOT TAKEN ANY MEDICATIONS AT HOME SINCE SYMPTOMS BEGAN, REPORTS N/V TODAY. DENIES ABD PAIN, CP, SOB, FEVERS, PATIENT AOX4 SPEAKING IN FULL CLEAR SENTENCES. DENIES WEAKNESS, NUMBNESS OR VISION CHANGES.
[2022-05-21 12:49] VITALS: BP 102/60
--- NOTE | 2022-05-21 13:00 | NUR ---
PATIENT STATING SOME RELIEF OF SYMPTOMS AT THIS TIME.
[2022-05-21] MEDS ORDERED: IBUP-2213 PO (13:34)
[2022-05-21] MEDS ORDERED: MECL-303 PO (13:34)
[2022-05-21] MEDS ORDERED: AMOX-1230 PO (13:34)
[2022-05-21] MEDS ORDERED: OFLO5SOL27 RIGHT EAR (13:34)
--- NOTE | 2022-05-21 13:56 | NUR ---
Patient discharged with v/s stable. Written and verbal after care instructions given EAR DRAINAGE AND DIZZINESS and explained. Patient alert, oriented and verbalized understanding of instructions. Ambulatory with steady gait. All questions addressed prior to discharge. ID band removed. Patient advised to follow up with PMD. Rx of MECLIZINE, IBUPROFEN, AND OFLOXACIN given. Patient educated on indication of medication including possible reaction and side effects. Opportunity to ask questions provided and answered.
== END 2022-05-21 13:56 | disposition home or self-care (01) ==
LOC: MED 09:58
DX: R07.9 Chest pain, unspecified (principal); R42 Dizziness and giddiness; M79.7 Fibromyalgia; Z79.1 Long term (current) use of non-steroidal anti-inflammatories (NSAID); Z79.891 Long term (current) use of opiate analgesic; Z88.5 Allergy status to narcotic agent; Z88.8 Allergy status to other drugs, medicaments and biological substances
CPT/HCPCS: 71045; 81002; 81025; 93005; 96361; 96374; 96375; 99284; J1200; J1885; J2765; J7030

== ENCOUNTER 2022-06-16 10:54 | Emergency (ER) | payer OTHER ==
[~2022-06-16] VITALS: Ht 154.9 cm; Wt 57.2 kg
[~2022-06-16 10:54] MED LIST changes: +AMOX-1230 PO; +MECL-303 PO; +OFLO5SOL27 RIGHT EAR
[2022-06-16 11:13] VITALS: BP 108/58
--- NOTE | 2022-06-16 11:30 | NUR ---
BIB SELF C/O 4/10 MID CHEST PAIN X 5 DAYS AND C/O 10/10 JOJO KNEE PAIN X 3 MONTHS. PMH: FIBROMYALGIA. DENIES N/V/D; SKIN IS PINK/WARM/DRY; AAOX4 WITH EVEN AND STEADY GAIT; LUNGS CLEAR BL; HR EVEN AND REGULAR; PT DENIES ANY FEVER,SOB, OR COUGH AT THIS TIME. ER MD MADE AWARE OF PT STATUS.
[2022-06-16] MEDS ORDERED: KETOROLAC 60 MG/2 ML VIAL IM ONE (13:00)
[2022-06-16] MEDS ORDERED: IBUP-2213 PO (13:29)
[2022-06-16] MEDS ORDERED: PRED20TA5 PO (13:29)
[2022-06-16 13:40] VITALS: BP 111/62
--- NOTE | 2022-06-16 13:41 | NUR ---
Patient discharged with v/s stable. Written and verbal after care instructions given CHRONIC KNEE PAIN AND CHEST WALL PAIN and explained. Patient alert, oriented and verbalized understanding of instructions. Ambulatory with steady gait. All questions addressed prior to discharge. ID band removed. Patient advised to follow up with PMD. Rx of PREDNISONE AND IBUPROFEN given. Patient educated on indication of medication including possible reaction and side effects. Opportunity to ask questions provided and answered.
== END 2022-06-16 13:40 | disposition home or self-care (01) ==
LOC: MED 10:54
DX: M25.561 Pain in right knee (principal); M25.562 Pain in left knee; R07.89 Other chest pain; Z90.49 Acquired absence of other specified parts of digestive tract; Z98.890 Other specified postprocedural states; Z79.1 Long term (current) use of non-steroidal anti-inflammatories (NSAID); Z79.899 Other long term (current) drug therapy; Z79.2 Long term (current) use of antibiotics; Z79.891 Long term (current) use of opiate analgesic; Z88.8 Allergy status to other drugs, medicaments and biological substances; Z88.5 Allergy status to narcotic agent
CPT/HCPCS: 81002; 81025; 93005; 96372; 99283; J1885

== ENCOUNTER 2022-07-10 11:02 | Emergency (ER) | payer OTHER ==
[~2022-07-10] VITALS: Ht 154.9 cm; Wt 55.3 kg
[~2022-07-10 11:02] MED LIST changes: +PRED20TA5 PO
[2022-07-10 11:27] VITALS: BP 95/61
--- NOTE | 2022-07-10 11:29 | NUR ---
BIB SELF C/O 07/21 JOJO KNEES PAIN X 2 WEEKS. DENIES TRAUMA. PMH: FIBROMYALGIA
[2022-07-10] MEDS ORDERED: KETOROLAC 30 MG/ML VIAL IM ONE (12:45)
[2022-07-10] MEDS ORDERED: PRED50TA2 PO (15:27)
[2022-07-10] MEDS ORDERED: KETO10TA2 PO (15:27)
[2022-07-10 16:08] VITALS: BP 101/62
--- NOTE | 2022-07-10 16:08 | NUR ---
Patient discharged with v/s stable. Written and verbal after care instructions given and explained. Patient alert, oriented and verbalized understanding of instructions. Ambulatory with steady gait. All questions addressed prior to discharge. ID band removed. Patient advised to follow up with PMD. Rx of KETOROLAC & PREDNISONE given. Patient educated on indication of medication including possible reaction and side effects. Opportunity to ask questions provided and answered.
== END 2022-07-10 16:08 | disposition home or self-care (01) ==
LOC: MED 11:02
DX: M54.50 Low back pain, unspecified (principal); M25.561 Pain in right knee; M25.562 Pain in left knee; G89.29 Other chronic pain; Z88.5 Allergy status to narcotic agent; Z88.6 Allergy status to analgesic agent; Z88.8 Allergy status to other drugs, medicaments and biological substances; Z79.899 Other long term (current) drug therapy
CPT/HCPCS: 72100; 73562; 96372; 99284; J1885

== ENCOUNTER 2022-09-16 11:00 | Emergency (ER) | payer OTHER ==
[~2022-09-16] VITALS: Ht 160 cm; Wt 57.2 kg
[~2022-09-16 11:00] MED LIST changes: +KETO10TA2 PO; +PRED50TA2 PO
[2022-09-16 11:07] VITALS: BP 109/69
[2022-09-16] MEDS ORDERED: NAPR-1704 PO (11:41)
[2022-09-16] MEDS ORDERED: LORA1T1237 PO (11:41)
--- NOTE | 2022-09-16 11:51 | NUR ---
37/F PRESENTS TO ED WITH C/O CONGESTION AND EPISODES OF SOB X4 DAYS, REPORTS USING AN INHALER WITH SOME RELIEF. DENIES COUGH, FEVERS, O2 IN TRIAGE 99%.
--- NOTE | 2022-09-16 11:52 | NUR ---
Patient discharged with v/s stable. Written and verbal after care instructions given and explained for Myofascial Pain Syndrome and Fibromyalgia, Viral Illness. Patient alert, oriented and verbalized understanding of instructions. Ambulatory with steady gait. All questions addressed prior to discharge. ID band removed. Patient advised to follow up with PMD. Rx of NAPROXEN, CLARITIN-D 12 HR TABLET given. Patient educated on indication of medication including possible reaction and side effects. Opportunity to ask questions provided and answered.
--- NOTE | 2022-09-16 11:52 | NUR ---
DIANE BLACK WALKED TO LAB.
== END 2022-09-16 11:52 | disposition home or self-care (01) ==
LOC: MED 11:00
DX: B34.9 Viral infection, unspecified (principal); M79.7 Fibromyalgia; Z20.822 Contact with and (suspected) exposure to COVID-19; R07.89 Other chest pain; M54.50 Low back pain, unspecified; Z90.49 Acquired absence of other specified parts of digestive tract; Z98.890 Other specified postprocedural states; Z79.899 Other long term (current) drug therapy; Z79.1 Long term (current) use of non-steroidal anti-inflammatories (NSAID); Z79.2 Long term (current) use of antibiotics; Z79.891 Long term (current) use of opiate analgesic; Z88.5 Allergy status to narcotic agent; Z88.8 Allergy status to other drugs, medicaments and biological substances
CPT/HCPCS: 99283

== ENCOUNTER 2023-02-02 13:19 | Emergency (ER) | payer OTHER ==
[~2023-02-02] VITALS: Ht 154.9 cm; Wt 60.8 kg
[~2023-02-02 13:19] MED LIST changes: +LORA1T1237 PO
[2023-02-02 13:34] VITALS: BP 115/75
--- NOTE | 2023-02-02 13:38 | NUR ---
LOW ABDOMEN/LOW BACK PAIN X 2 WEEKS, PATIENT RECENTLY COMPLETED A COURSE OF ANTIBIOTICS BUT SYMPTOMS HAVE NOT RESOLVED. ALSO ENDORSING FEVER, NASAL CONGESTION, AND CHILLS. PMH: FIBROMYALGIA MEDS: CYMBALTA
--- NOTE | 2023-02-02 15:06 | NUR ---
Amb. to bed 12 w no difficulty. no acute distress
[2023-02-02 15:37] LABS: APPEARANCE,URINE CLEAR (CLEAR); BILIRUBIN,URINE NEGATIVE (NEGATIVE); BLOOD, URINE NEGATIVE (NEGATIVE); COLOR,URINE YELLOW (YELLOW); LEUKOCYTE ESTERASE ,URINE NEGATIVE (NEGATIVE); NITRITE, URINE NEGATIVE (NEGATIVE); UGLUCOSE NEGATIVE (NEGATIVE)
[2023-02-02 15:43] LABS: BASOPHILS # (AUTO) 0.1 K/uL (0.00-0.22); BASOPHILS % (AUTO) 2.7 % (0.0-2.0); EOSINOPHILS # (AUTO) 0.1 K/uL (0-0.4); EOSINOPHILS % (AUTO) 1.5 % (0.0-4.0); HEMATOCRIT 31.4 % (36-48); HEMOGLOBIN 10.3 g/dL (12.0-16.0); LYMPHOCYTES # (AUTO) 1.3 K/uL (2.5-16.5); LYMPHOCYTES % (AUTO) 27.6 % (20.5-51.1); MEAN CORPUSCULAR HEMOGLOBIN 25 pg (27-31); MEAN CORPUSCULAR HGB CONC 33 g/dL (33-37); MEAN CORPUSCULAR VOLUME 75.5 fL (80-94); MONOCYTES # (AUTO) 0.6 K/uL (0.8-1.0); MONOCYTES % (AUTO) 11.9 % (1.7-9.3); NEUTROPHILS # (AUTO) 2.7 K/uL (1.8-7.7); NEUTROPHILS % (AUTO) 56.3 % (42.2-75.2); PLATELET COUNT (AUTO) 280 K/uL (140-450); RED BLOOD CELL COUNT(AUTO) 4.16 MIL/uL (4.20-5.40); RED CELL DISTRIBUTION WIDTH 16.1 % (11.6-13.7); WHITE BLOOD COUNT (AUTO) 4.7 K/uL (4.8-10.8)
[2023-02-02 16:02] LABS: ALBUMIN 3.7 g/dL (3.4-5.0); ANION GAP 8.6 (8-16); CARBON DIOXIDE 30.1 mmol/L (21-32); CREATININE 0.7 mg/dL (0.6-1.3); POTASSIUM 3.7 mmol/L (3.5-5.1); TOTAL BILIRUBIN 0.2 mg/dL (0.0-1.0)
--- NOTE | 2023-02-02 17:24 | NUR ---
PT LEFT WITHOUT MEDICAL ADVISE.
--- NOTE | 2023-02-02 17:27 | NUR ---
PATIENT ELOPED FROM FACILITY. DISCHARGE INSTRUCTIONS NOT GIVEN TO PATIENT. DR. RANDOLPH NOTIFIED.
== END 2023-02-02 17:27 | disposition left against medical advice (07) ==
LOC: MED 13:19
DX: R10.30 Lower abdominal pain, unspecified (principal); Z88.5 Allergy status to narcotic agent; Z88.8 Allergy status to other drugs, medicaments and biological substances; Z79.899 Other long term (current) drug therapy
CPT/HCPCS: 36415; 80053; 81003; 85025; 99283

== ENCOUNTER 2023-06-28 08:36 | Emergency (ER) | payer OTHER ==
[~2023-06-28] VITALS: Ht 154.9 cm; Wt 64.4 kg
[2023-06-28 08:55] VITALS: BP 109/67; PULSE 102; RESP 18; TEMP 97.6; O2SAT 99
[2023-06-28] MEDS ORDERED: NACL 0.9% 1,000 ML IV SCH (09:10)
[2023-06-28] MEDS ORDERED: KETOROLAC 30 MG/ML VIAL IVP ONE (09:10)
[2023-06-28 09:40] LABS: BASOPHILS # (AUTO) 0.2 K/uL (0.00-0.22); BASOPHILS % (AUTO) 3.2 % (0.0-2.0); EOSINOPHILS # (AUTO) 0.1 K/uL (0-0.4); EOSINOPHILS % (AUTO) 1.9 % (0.0-4.0); HEMATOCRIT 35.7 % (36-48); HEMOGLOBIN 11.7 g/dL (12.0-16.0); LYMPHOCYTES # (AUTO) 1.6 K/uL (2.5-16.5); LYMPHOCYTES % (AUTO) 31.6 % (20.5-51.1); MEAN CORPUSCULAR HEMOGLOBIN 24 pg (27-31); MEAN CORPUSCULAR HGB CONC 33 g/dL (33-37); MEAN CORPUSCULAR VOLUME 74.1 fL (80-94); MONOCYTES # (AUTO) 0.6 K/uL (0.8-1.0); MONOCYTES % (AUTO) 12.2 % (1.7-9.3); NEUTROPHILS # (AUTO) 2.7 K/uL (1.8-7.7); NEUTROPHILS % (AUTO) 51.1 % (42.2-75.2); PLATELET COUNT (AUTO) 289 K/uL (140-450); RED BLOOD CELL COUNT(AUTO) 4.82 MIL/uL (4.20-5.40); RED CELL DISTRIBUTION WIDTH 17.9 % (11.6-13.7); WHITE BLOOD COUNT (AUTO) 5.2 K/uL (4.8-10.8)
[2023-06-28 10:02] LABS: ALBUMIN 3.7 g/dL (3.4-5.0); ANION GAP 13.5 (8-16); CALCIUM 8.4 mg/dL (8.5-10.1); CARBON DIOXIDE 25.8 mmol/L (21-32); CREATININE 0.7 mg/dL (0.6-1.3); POTASSIUM 3.3 mmol/L (3.5-5.1); TOTAL BILIRUBIN 0.3 mg/dL (0.0-1.0); TOTAL PROTEIN, SERUM 7.3 g/dL (6.4-8.2)
[2023-06-28 11:02] LABS: APPEARANCE,URINE CLEAR (CLEAR); BILIRUBIN,URINE NEGATIVE (NEGATIVE); BLOOD, URINE TRACE-I (NEGATIVE); COLOR,URINE YELLOW (YELLOW); LEUKOCYTE ESTERASE ,URINE NEGATIVE (NEGATIVE); NITRITE, URINE NEGATIVE (NEGATIVE); PH,URINE 7.5 (5.0-9.0); PROTEIN,URINE NEGATIVE (NEGATIVE); UGLUCOSE NEGATIVE (NEGATIVE); UROBILINOGEN,URINE 0.2 EU/dL (0.2 - 1)
[2023-06-28 11:13] LABS: BACTERIA,URINE OCCASSIONAL /HPF (None Seen); RBC,URINE 0-5 /HPF (0-5); SQUAMOUS EPITHELIAL CELL,UR 0-3 (FEW) /LPF (0-3 (FEW)); WBC,URINE 0-5 /HPF (0-5)
[2023-06-28] MEDS ORDERED: IBUP-2213 PO (11:32)
[2023-06-28 11:42] VITALS: BP 111/67; PULSE 88; RESP 18; TEMP 98; O2SAT 99
== END 2023-06-28 11:42 | disposition home or self-care (01) ==
LOC: MED 08:36
DX: N83.202 Unspecified ovarian cyst, left side (principal); Z88.5 Allergy status to narcotic agent; Z79.899 Other long term (current) drug therapy; Z88.8 Allergy status to other drugs, medicaments and biological substances
CPT/HCPCS: 36415; 76856; 80053; 81001; 81025; 83690; 84703; 85025; 87210; 87491; 93976; 96361; 96374; 99285; J1885; J7030; Q0092

== ENCOUNTER 2023-07-16 11:14 | Emergency (ER) | payer OTHER ==
[~2023-07-16] VITALS: Ht 154.9 cm; Wt 63.5 kg
[2023-07-16 11:26] VITALS: BP 100/59; PULSE 99; RESP 14; TEMP 97.8; O2SAT 99
[2023-07-16] MEDS ORDERED: AMOX1TAB8 PO (13:52)
[2023-07-16 13:59] VITALS: BP 109/76; PULSE 74; RESP 17; O2SAT 99
[2023-07-16 14:36] LABS: FLU A ANTIGEN negative (NEGATIVE); FLU B ANTIGEN NEGATIVE (NEGATIVE)
== END 2023-07-16 13:59 | disposition home or self-care (01) ==
LOC: MED 11:14
DX: J01.90 Acute sinusitis, unspecified (principal); Z88.5 Allergy status to narcotic agent; Z79.899 Other long term (current) drug therapy; Z20.822 Contact with and (suspected) exposure to COVID-19
CPT/HCPCS: 71046; 99284

== ENCOUNTER 2023-08-21 12:27 | Emergency (ER) | payer OTHER ==
[~2023-08-21] VITALS: Ht 154.9 cm; Wt 67.6 kg
[~2023-08-21 12:27] MED LIST changes: +AMOX1TAB8 PO
[2023-08-21 12:35] VITALS: BP 117/65; PULSE 104; RESP 18; TEMP 99; O2SAT 100
[2023-08-21] MEDS ORDERED: AMOX-1230 PO (13:05)
[2023-08-21] MEDS ORDERED: KETOROLAC 30 MG/ML VIAL IM ONE (13:10)
== END 2023-08-21 13:25 | disposition home or self-care (01) ==
LOC: MED 12:27
DX: J32.9 Chronic sinusitis, unspecified (principal); Z88.5 Allergy status to narcotic agent; Z79.899 Other long term (current) drug therapy
CPT/HCPCS: 96372; 99283; J1885

== ENCOUNTER 2023-11-15 10:16 | Emergency (ER) | payer OTHER ==
[~2023-11-15] VITALS: Ht 154.9 cm; Wt 63.5 kg
[2023-11-15 10:37] VITALS: BP 107/72; PULSE 104; RESP 17; TEMP 99.4; O2SAT 99
[2023-11-15] MEDS ORDERED: DOXY-487 PO (12:34)
[2023-11-15 13:17] VITALS: BP 136/80; PULSE 74; RESP 16; TEMP 98.2; O2SAT 99
== END 2023-11-15 13:20 | disposition home or self-care (01) ==
LOC: MED 10:16
DX: J32.9 Chronic sinusitis, unspecified (principal); Z88.5 Allergy status to narcotic agent; Z88.8 Allergy status to other drugs, medicaments and biological substances; Z79.899 Other long term (current) drug therapy
CPT/HCPCS: 99283

== ENCOUNTER 2024-03-19 12:36 | Emergency (ER) | payer OTHER ==
[~2024-03-19] VITALS: Ht 157.5 cm; Wt 68.0 kg
[~2024-03-19 12:36] MED LIST changes: +DOXY-487 PO; +NAPR-337 PO; -NAPR-54 PO
[2024-03-19 12:44] VITALS: BP 110/64; PULSE 96; RESP 18; TEMP 97.2; O2SAT 99
[2024-03-19 13:28] LABS: APPEARANCE,URINE CLEAR (CLEAR); BILIRUBIN,URINE NEGATIVE (NEGATIVE); BLOOD, URINE TRACE-I (NEGATIVE); COLOR,URINE YELLOW (YELLOW); LEUKOCYTE ESTERASE ,URINE NEGATIVE (NEGATIVE); NITRITE, URINE POSITIVE (NEGATIVE); PROTEIN,URINE NEGATIVE (NEGATIVE); UGLUCOSE NEGATIVE (NEGATIVE); UROBILINOGEN,URINE 0.2 EU/dL (0.2 - 1)
[2024-03-19 13:33] LABS: RBC,URINE 0-5 /HPF (0-5); WBC,URINE 0-5 /HPF (0-5)
[2024-03-19 13:34] LABS: BACTERIA,URINE 10-30 (MOD) /HPF (None Seen); SQUAMOUS EPITHELIAL CELL,UR 4-10 (MOD) /LPF (0-3 (FEW))
[2024-03-19] MEDS: FAMOTIDINE 20 MG TAB PO ONE (13:49)
[2024-03-19] MEDS: ALUMINUM HYD/MAG/SIMETHICONE 30 ML UDC PO ONE (13:50)
[2024-03-19 14:01] LABS: BASOPHILS # (AUTO) 0.1 K/uL (0.00-0.22); BASOPHILS % (AUTO) 1.7 % (0.0-2.0); EOSINOPHILS # (AUTO) 0.1 K/uL (0-0.4); EOSINOPHILS % (AUTO) 2.1 % (0.0-4.0); HEMATOCRIT 33.5 % (36-48); LYMPHOCYTES # (AUTO) 1.7 K/uL (2.5-16.5); LYMPHOCYTES % (AUTO) 32.3 % (20.5-51.1); MEAN CORPUSCULAR HEMOGLOBIN 24 pg (27-31); MEAN CORPUSCULAR HGB CONC 33 g/dL (33-37); MEAN CORPUSCULAR VOLUME 72.9 fL (80-94); MONOCYTES # (AUTO) 0.5 K/uL (0.8-1.0); MONOCYTES % (AUTO) 9.6 % (1.7-9.3); NEUTROPHILS # (AUTO) 2.9 K/uL (1.8-7.7); NEUTROPHILS % (AUTO) 54.3 % (42.2-75.2); PLATELET COUNT (AUTO) 293 K/uL (140-450); WHITE BLOOD COUNT (AUTO) 5.3 K/uL (4.8-10.8)
[2024-03-19 14:08] LABS: ANION GAP 10.5 (8-16); CALCIUM 8.8 mg/dL (8.5-10.1); CARBON DIOXIDE 27.3 mmol/L (21-32); CREATININE 0.7 mg/dL (0.6-1.3); POTASSIUM 3.8 mmol/L (3.5-5.1)
[2024-03-19 14:15] LABS: ALBUMIN 3.7 g/dL (3.4-5.0); BILIRUBIN,DIRECT 0.1 mg/dL (0.0-0.3); TOTAL BILIRUBIN 0.3 mg/dL (0.0-1.0); TOTAL PROTEIN, SERUM 7.4 g/dL (6.4-8.2)
[2024-03-19] MEDS ORDERED: FAMO-92 PO (16:03)
[2024-03-19] MEDS ORDERED: SIME80TA41 PO (16:03)
[2024-03-19] MEDS ORDERED: ACET-10509 PO (16:03)
== END 2024-03-19 16:45 | disposition home or self-care (01) ==
LOC: MED 12:36
DX: N39.0 Urinary tract infection, site not specified (principal); R14.0 Abdominal distension (gaseous); R53.83 Other fatigue; Z79.1 Long term (current) use of non-steroidal anti-inflammatories (NSAID); Z79.2 Long term (current) use of antibiotics; Z79.899 Other long term (current) drug therapy; Z88.5 Allergy status to narcotic agent
CPT/HCPCS: 36415; 80048; 80076; 81001; 81025; 83690; 85025; 87086; 99284

== ENCOUNTER 2024-04-04 16:24 | Emergency (ER) | payer OTHER ==
[~2024-04-04] VITALS: Ht 160 cm; Wt 68.0 kg
[~2024-04-04 16:24] MED LIST changes: +ACET-10509 PO; +FAMO-92 PO; +SIME80TA41 PO
[2024-04-04 16:31] VITALS: BP 111/69; PULSE 87; RESP 18; TEMP 98.1; O2SAT 100
[2024-04-04] MEDS: KETOROLAC 30 MG/ML VIAL IM ONE (17:55)
[2024-04-04 18:05] VITALS: BP 108/71; PULSE 89; RESP 18; TEMP 98; O2SAT 100
[2024-04-04 18:06] LABS: APPEARANCE,URINE CLEAR (CLEAR); BILIRUBIN,URINE NEGATIVE (NEGATIVE); BLOOD, URINE TRACE-I (NEGATIVE); COLOR,URINE YELLOW (YELLOW); LEUKOCYTE ESTERASE ,URINE NEGATIVE (NEGATIVE); NITRITE, URINE NEGATIVE (NEGATIVE); PROTEIN,URINE NEGATIVE (NEGATIVE); UGLUCOSE NEGATIVE (NEGATIVE); UROBILINOGEN,URINE 0.2 EU/dL (0.2 - 1)
[2024-04-04 18:17] LABS: BACTERIA,URINE FEW /HPF (None Seen); RBC,URINE 0-5 /HPF (0-5); SQUAMOUS EPITHELIAL CELL,UR 0-3 (FEW) /LPF (0-3 (FEW)); WBC,URINE 0-5 /HPF (0-5)
== END 2024-04-04 18:15 | disposition home or self-care (01) ==
LOC: MED 16:24
DX: R30.0 Dysuria (principal); R35.0 Frequency of micturition; Z88.5 Allergy status to narcotic agent; Z79.899 Other long term (current) drug therapy
CPT/HCPCS: 81001; 81025; 87086; 87491; 96372; 99283; J1885